=== PATIENT | female | born 1980 | race Caucasian/White ===

== ENCOUNTER 2018-10-03 13:40 | Inpatient (IN) ==
[2018-10-03] MEDS ORDERED: LACTATED RINGER'S 1,000 ML IV PRN ×3 (13:51→16:39)
[2018-10-03] MEDS ORDERED: OXYTOCIN 30 UNITS/500 ML BAG IV PRN ×2 (13:51→14:49)
--- NOTE | 2018-10-03 13:55 | Obstetrical Progress Note ---
Date of Service October 03, 2018 39+2 sent from office for PROM and elevated BP. No sig. H/A or RYQ pain, but anxious. Will induce for PROM and additionally control BP as needed. Will await labs to determine if Magnesium sulfate needed, note initial BP in office was not after sitting for 5 minutes. Physical Exam 2 Vital Signs (Past 24 Hours): Last Vital Signs Pulse 83 10/03/18 13:51 BP 176/86 H 10/03/18 13:44 Pulse Ox 94 10/03/18 13:51
[2018-10-03] MEDS: LACTATED RINGER'S 1,000 ML IV SCH ×2 (14:04→18:52)
[2018-10-03] MEDS ORDERED: NIFEdipine 10 MG CAP PO STA (14:07)
--- NOTE | 2018-10-03 14:12 | Obstetrical Progress Note ---
Date of Service October 03, 2018 recent BP elevated, will give Nifedipine 10mg PO now Physical Exam 2 Vital Signs (Past 24 Hours): Last Vital Signs Pulse 82 10/03/18 14:10 BP 189/117 H 10/03/18 14:05 Pulse Ox 96 10/03/18 14:10
[2018-10-03 14:24] LABS: Hematocrit (blood only) 37.2 % (37-47); Hemoglobin 12.5 g/dL (12.0-16.0); Mean Corpuscular Volume 86.3 fL (80-100); Mean Platelet Volume 12.5 fL (7.4-10.4); Platelet Count 178 K/uL (130-400); RDW Standard Deviation 43.7 fL (36.4-46.3); Red Blood Count 4.31 M/uL (4.2-5.4); White Blood Count 10.26 K/uL (4.8-10.8)
[2018-10-03 14:25] LABS: Mean Corpuscular Hgb Conc 33.6 g/dL (32-36)
--- NOTE | 2018-10-03 14:35 | History & Physical Report ---
Date of Service October 03, 2018 Assessment & Plan (1) 39 weeks gestation of : 37 year old, , at 39.2 weeks gestation with EDC of 10/08/2018 via LMP of 01/01/18. A-, Ab-, GBS- - will augment contractions with Pitocin, epidural upon request, anticipate (2) Elevated blood pressure reading: no symptoms suggesting pre-eclampsia, normal platelets, creatinine, LFTs, does have elevated BP readings here - ordered Nifedipine 10mg PO one time dose and will continue to monitor vitals History of Present Illness Chief Complaint: Labor check and Elevated Blood pressure Primary Care Provider: NO PCP Jsoeph Walterel is 37 year old, , at 39.2 weeks gestation with EDC of 2018 via LMP of 01/01/18 who presents for labor evaluation and elevated blood pressure. She notes leakage of fluid from vagina this morning with 6 contractions in one hour prior to OB appointment. She was seen at OB office prior to admission here and was found to have BP of 220/138. Also noted had positive ferning. She denies headaches, visual changes, RUQ pain. She does not that she felt more short of breath this morning that woke her from sleep and also was mildly nauseated without vomiting. She denies chest pain, fever, chills. Her has been uncomplicated thus far. She notes she feels baby move, no vaginal bleeding. Allergies Allergy/AdvReac Type Severity Reaction Status Date / Time No Known Drug Allergies AdvReac Unknown Verified 10/03/18 14:55 Home Medications Home Medications Medication Instructions Recorded Confirmed Type Vitamin 1 tab/day PO DAILY 10/03/18 10/03/18 History mesalamine 3 tab PO DAILY 10/03/18 10/03/18 History Patient History Medical History Colonoscopy planned Depression Ulcerative colitis [place] teeth removed Surgical History Hx of LASIK Hx of breast reduction, elective OB History , 39.2 weeks gestation with EDC of 10/08/2018 via LMP of 01/01/18 [employer]IN TE[employer]ER History no abnormal paps, no STDs Review of Systems All systems reviewed & are unremarkable except as noted in HPI & below Physical Exam 2 Vital Signs (Past 24 Hours): Last Vital Signs Pulse 77 10/03/18 14:19 BP 175/92 H 10/03/18 14:19 Pulse Ox 96 10/03/18 14:15 Constitutional: WD/WN, vitals as above cooperative Eyes: + anicteric sclerae Respiratory: normal respiratory effort, lungs clear to auscultation Cardiovascular: Rate/Rhythm: regular rate and regular rhythm Heart Sounds: no murmur Gastrointestinal (Abdomen): Percussion/Palpation: abdomen nontender gravid Musculoskeletal: Head/Neck/Chest: normocephalic and head atraumatic Skin: no rashes, warm and dry Neurologic: moves all extremities and awake Psychiatric: Orientation: alert Affect: + anxious affect Genitourinary: OB Exam Monitor Tracing: + external FHT monitor used, + external uterine monitor used and + category I cervical exam performed by Dr. Velasco 1cm/50% effacement Results & Data Laboratory Results Laboratory Results - last 24 hr 10/03/18 10/03/18 14:10 14:10 WBC 10.26 RBC 4.31 Hgb 12.5 Hct 37.2 MCV 86.3 MCH 29.0 MCHC 33.6 RDW Std Deviation 43.7 RDW Coeff of Favian 14.0 Plt Count 178 MPV 12.5 H Sodium 139 Potassium 3.8 Chloride 109 H Carbon Dioxide 23 Anion Gap 7.0 BUN 6 L Creatinine 0.57 L Est Cr Clr Drug Dosing Not Reportable Est GFR ( Amer) 138.2 Est GFR (Non-Af Amer) 119.3 BUN/Creatinine Ratio 10.7 Glucose 68 L Calcium 8.9 Total Bilirubin 0.3 Direct Bilirubin < 0.1 AST 20 ALT 20 Alkaline Phosphatase 145 H Total Protein 6.3 L Albumin 2.7 L Globulin 3.6 Albumin/Globulin Ratio 0.8 L Medications Administered Lactated Ringer's (Lr) 1,000 mls @ 125 mls/hr IV .Q8H ESSIE Stop: 10/05/18 13:59 Last Admin: 10/03/18 14:04 Dose: 125 mls/hr Code Status & VTE Plan Code Status Full Code Monitoring External Monitor Baseline 145 w/moderate variability, accels present, no decels Tocodynamometer mild irregular contractions
[2018-10-03 14:41] LABS: Alanine Aminotransferase 20 U/L (12-78); Albumin Level 2.7 gm/dl (3.4-5.0); Aspartate Aminotransferase 20 U/L (15-37); BUN Creatinine Ratio 10.7 (10-20); Bilirubin Direct < 0.1 mg/dl (0-0.2); Blood Urea Nitrogen 6 mg/dl (7-18); Calcium 8.9 mg/dl (8.5-10.1); Carbon Dioxide 23 mmol/L (21-32); Chloride 109 mmol/L (98-107); Est GFR (African American) 138.2; Est GFR (Non-African American) 119.3; Glucose 68 mg/dl (70-99); Potassium 3.8 mmol/L (3.5-5.1); Sodium 139 mmol/L (136-145)
[2018-10-03 14:44] LABS: Albumin Globulin Ratio 0.8 (0.9-2); Alkaline Phosphatase 145 U/L (45-117); Bilirubin,Total 0.3 mg/dl (0.2-1); Globulin 3.6 gm/dl (2.5-4.0); Total Protein 6.3 gm/dl (6.4-8.2)
--- NOTE | 2018-10-03 14:50 | Obstetrical Progress Note ---
Date of Service October 03, 2018 Labs normal, BP much improved. Will star Oxytocin as only 1cm, 50% PROM. 7-8 lbs Physical Exam 2 Vital Signs (Past 24 Hours): Last Vital Signs Pulse 100 H 10/03/18 14:48 BP 121/77 10/03/18 14:48 Pulse Ox 96 10/03/18 14:15
[2018-10-03] MEDS ORDERED: BUPIVACAINE 0.25% 30 ML VIAL ONE ×2 (15:14→17:41)
[2018-10-03] MEDS ORDERED: fentaNYL citrate 100 MCG/2 ML VIAL ONE ×2 (15:14→23:01)
[2018-10-03] MEDS ORDERED: ePHEDrine sulfate 50 MG/ML AMP ONE (15:14)
[2018-10-03] MEDS ORDERED: fentaNYL 2MCG/ML ROPIV 1.25MG/ML 100 ML BAG EPI ONE (15:16)
--- NOTE | 2018-10-03 16:31 | Anesthesiology Consultation ---
Date of Service October 03, 2018 Assessment & Plan (1) Encounter for pre-operative examination: Chart Review Chart Review: Patient NOT seen in Pre Admission Testing and Acceptable Risk for Labor Epidural ASA ASA2 Proposed Anesthesia Risk / Benefits Reviewed With: PT / POA / Parent / Guardian, Accepts Plan and Informed Consent Obtained NPO Date Last Intake of Fluids: 10/03/18 Time Last Intake of Fluids: 10:31 Date Last Intake of Solids: 10/03/18 Time Last Intake of Solids: 10:31 History Allergies Allergy/AdvReac Type Severity Reaction Status Date / Time No Known Drug Allergies AdvReac Unknown Verified 10/03/18 14:55 Medications Home Medications Medication Instructions Recorded Confirmed Last Taken Vitamin 1 tab/day PO DAILY 10/03/18 10/03/18 10/02/18 08:00 mesalamine 3 tab PO DAILY 10/03/18 10/03/18 10/03/18 0900 Active Medications Generic Name Dose Route Start Last Admin Trade Name Freq PRN Reason Stop Dose Admin Lactated Ringer's 1,000 mls @ 125 mls/hr 10/03/18 14:00 10/03/18 14:04 Lr IV 10/05/18 13:59 125 mls/hr .Q8H ESSIE Administration Oxytocin 30 units in 500 mls @ 1 mls/hr 10/03/18 14:49 10/03/18 15:55 Pitocin IV 10/05/18 14:48 0.06 units/hr .Q24H PRN 1 mls/hr Labor Induction/Augmentation Administration Protocol 0.06 UNITS/HR Past Medical History Medical History Colonoscopy planned Depression Ulcerative colitis [place] teeth removed Past Surgical History Surgical History Hx of LASIK Hx of breast reduction, elective Physical Exam Vital Signs Last Vital Signs Temp 36.7 C 10/03/18 16:20 Pulse 74 10/03/18 16:25 Resp 24 10/03/18 16:20 BP 146/85 H 10/03/18 16:25 Pulse Ox 98 10/03/18 16:25 ENMT Mouth: no dentition abnormality Thyromental Distance: > or= 3.5 Finger Breadths Mallampati Class: II Neck normal visual inspection; neck extension not limited Respiratory normal respiratory effort Auscultation: lungs clear to auscultation bilaterally Cardiovascular Rate/Rhythm: regular rate and regular rhythm Musculoskeletal Spine: normal cervical ROM Psychiatric Orientation: alert and oriented x 3 Testing Laboratory Results 10/03/18 14:10 10/03/18 14:10
[2018-10-03] MEDS ORDERED: PROMETHAZINE HCL 6.25 MG in SODIUM CHLORIDE 0.9% 50 ML IV PRN (16:39)
[2018-10-03] MEDS ORDERED: NALBUPHINE HCL INJ 10 MG/ML AMP IV PRN (16:39)
[2018-10-03] MEDS ORDERED: NALOXONE HCL 1 MG in SODIUM CHLORIDE 0.9% 1000ML 1,000 ML IV PRN (16:39)
[2018-10-03] MEDS ORDERED: NALOXONE HCL 0.4 MG/1 ML VIAL/CARP IV PRN (16:39)
[2018-10-03] MEDS ORDERED: ePHEDrine sulfate 50 MG/ML AMP IV PRN (16:39)
[2018-10-03] MEDS ORDERED: ONDANSETRON INJ 2 MG/ML 2 ML VIAL IV PRN (16:39)
[2018-10-03 17:51] LABS: Amphetamines+Metham, Urine Neg (Neg); Barbiturates, Urine Neg (Neg); Benzodiazepine, Urine Neg (Neg); Cocaine, Urine Neg (Neg); MDMA (Ecstacy), Urine Neg (Neg); Methadone, Urine Neg (Neg); Opiate, Urine Neg (Neg); Phencyclidine, Urine Neg (Neg)
--- NOTE | 2018-10-03 18:12 | Anesthesiology Progress Note ---
Date of Service October 03, 2018 Assessment & Plan (1) Encounter for pre-operative examination: Dosed patient with 15cc of mixed local anesthetic including 5cc of 1% lidocaine, 5cc of 0.25% bupivicane, and 5cc of normal saline. Patient did get significant relief of her pain on both sides and had adequate sensory level bilaterally. Her PCEA basal rate was increased to 12cc/hr. Subjective Called by RN for L sided pain. Her left side apparently never received relief after epidural placement. Unfortunately the patient had a similar issue with her previous delivery and epidural, and it was not improved by replacement of the catheter that time. Physical Exam Vital Signs Last Vital Signs Temp 36.7 C 10/03/18 16:20 Pulse 72 10/03/18 18:05 Resp 24 10/03/18 16:20 BP 149/82 H 10/03/18 18:02 Pulse Ox 94 10/03/18 18:05 Neurologic Motor/Sensory: + sensory deficit (Decreased temp sensation to T4 on right, to approximately L2 on left.) Results & Data Medications Administered Lactated Ringer's (Lr) 1,000 mls @ 125 mls/hr IV .Q8H ESSIE Stop: 10/05/18 13:59 Last Admin: 10/03/18 14:04 Dose: 125 mls/hr Oxytocin (Pitocin) 30 units in 500 mls @ 1 mls/hr IV .Q24H PRN; Protocol PRN Reason: Labor Induction/Augmentation Stop: 10/05/18 14:48 Last Admin: 10/03/18 15:55 Dose: 0.06 units/hr, 1 mls/hr
[2018-10-03] MEDS: ACETAMINOPHEN 325 MG TAB PO PRN (19:02)
--- NOTE | 2018-10-03 19:30 | Obstetrical Progress Note ---
Date of Service October 03, 2018 Progressing to 7cm. Intermittent decels, still uncomfortable, so will have anesthesia called again. Physical Exam 2 Vital Signs (Past 24 Hours): Last Vital Signs Temp 36.7 C 10/03/18 16:20 Pulse 101 H 10/03/18 19:26 Resp 24 10/03/18 16:20 BP 153/74 H 10/03/18 19:19 Pulse Ox 91 10/03/18 19:26
[2018-10-03] MEDS: fentaNYL 2MCG/ML ROPIV 1.25MG/ML 100 ML BAG EPI PRN ×2 (19:45→20:05)
--- NOTE | 2018-10-03 19:49 | Anesthesiology Progress Note ---
Date of Service October 03, 2018 Assessment & Plan (1) Encounter for pre-operative examination: Hand bolused with 15cc of 0.25% bupivicane. Increased PCEA bolus dose from 5cc to 10cc, extended demand interval from 5min to 10min. Total max 1hour dose still 32cc. Subjective Hand bolus improved pain for 2-3 hours. Now having R sided pain again. Physical Exam Vital Signs Last Vital Signs Temp 37.3 C 10/03/18 19:08 Pulse 81 10/03/18 19:44 Resp 24 10/03/18 16:20 BP 138/74 10/03/18 19:44 Pulse Ox 94 10/03/18 19:40 Neurologic Motor/Sensory: + sensory deficit (L sided sensory block T4, R sided T10) Results & Data Medications Administered Acetaminophen (Tylenol) 650 mg PO Q4H PRN PRN Reason: Headache Stop: 11/02/18 18:46 Last Admin: 10/03/18 19:02 Dose: 650 mg Lactated Ringer's (Lr) 1,000 mls @ 125 mls/hr IV .Q8H ESSIE Stop: 10/05/18 13:59 Last Admin: 10/03/18 18:52 Dose: 125 mls/hr Infusion: 10/03/18 18:52 Dose: 125 mls/hr Admin: 10/03/18 14:04 Dose: 125 mls/hr Oxytocin (Pitocin) 30 units in 500 mls @ 1 mls/hr IV .Q24H PRN; Protocol PRN Reason: Labor Induction/Augmentation Stop: 10/05/18 14:48 Last Admin: 10/03/18 15:55 Dose: 0.06 units/hr, 1 mls/hr
--- NOTE | 2018-10-03 20:46 | Obstetrical Progress Note ---
Date of Service October 03, 2018 Patient is having some recurrent variable shape B cell some of them times late after the contraction baseline variability is good patient is now 8+ centimeters -1 station Pitocin stop oxygen started will consider restarting Pitocin however she is luis eduardo discussed appropriate times for intervention including and possible vacuum Physical Exam 2 Vital Signs (Past 24 Hours): Last Vital Signs Temp 37.3 C 10/03/18 19:08 Pulse 82 10/03/18 20:40 Resp 24 10/03/18 16:20 BP 151/95 H 10/03/18 20:38 Pulse Ox 98 10/03/18 20:40
--- NOTE | 2018-10-03 21:01 | Obstetrical Progress Note ---
Date of Service October 03, 2018 Tracing is improved with stopping Pitocin and there still are variable shaped decelerations that are occurring occasionally in a late pattern variability and accelerations are reassuring Physical Exam 2 Vital Signs (Past 24 Hours): Last Vital Signs Temp 37.3 C 10/03/18 19:08 Pulse 87 10/03/18 20:55 Resp 24 10/03/18 16:20 BP 153/89 H 10/03/18 20:53 Pulse Ox 97 10/03/18 20:55
--- NOTE | 2018-10-03 22:25 | Obstetrical Progress Note ---
Date of Service October 03, 2018 She has progressed to anterior lip, 0 station. Intermittent deeper decels sometimes late in timing, sometimes not. We attempted to push x2 contractions and push the lip away, however there was no decent of the head. On examination with the 2 pushes, there was significant movement palpated.. Bleeding also has been noted with the labor process and a recent gush of bloody fluid. A+P: Watching very carefully and hoping for some progress in decent, otherwise may have to consider C/S. With her being a multip I am still hopeful. JFD Physical Exam 2 Vital Signs (Past 24 Hours): Last Vital Signs Temp 37.1 C 10/03/18 20:53 Pulse 84 10/03/18 22:15 Resp 24 10/03/18 16:20 BP 142/69 H 10/03/18 21:23 Pulse Ox 99 10/03/18 22:15
--- NOTE | 2018-10-03 22:35 | Obstetrical Progress Note ---
Date of Service October 03, 2018 Still no progress I have offered C/S as no cervical progress (9cm) in last hour , I don't feel like I can start Pitocin with the tracing and FHR tracing is worsening. Disc risks Physical Exam 2 Vital Signs (Past 24 Hours): Last Vital Signs Temp 37.1 C 10/03/18 20:53 Pulse 92 H 10/03/18 22:32 Resp 24 10/03/18 16:20 BP 142/69 H 10/03/18 21:23 Pulse Ox 90 10/03/18 22:32
[2018-10-03] MEDS ORDERED: CEFAZOLIN 2,000 MG in SYRINGE 0 ML IV ONE (22:45)
[2018-10-03] MEDS ORDERED: CITRIC ACID/SODIUM CITRATE 15 ML UDC ONE (22:45)
[2018-10-03] MEDS ORDERED: MoRPHine SULFATE PF 1 MG/ML 10 ML AMP/VIAL ONE (23:01)
[2018-10-03] MEDS ORDERED: KETOROLAC 30 MG/ML VIAL ONE (23:38)
[2018-10-03] MEDS ORDERED: ONDANSETRON INJ 2 MG/ML 2 ML VIAL ONE (23:38)
[2018-10-03] MEDS ORDERED: PHENYLEPHRINE 100MCG/ML 5ML SYR ONE (23:38)
[2018-10-03] MEDS ORDERED: OXYTOCIN 10 UNITS/ML VIAL ONE (23:38)
[2018-10-04] MEDS ORDERED: SUPERCREAM 0.870% 15 GM JAR EXT PRN (00:27)
[2018-10-04] MEDS ORDERED: MAGNESIUM HYDROXIDE SUSP 30 ML UDC PO PRN (00:27)
[2018-10-04] MEDS ORDERED: BENZOCAINE 20% AER SPR 82.5 GM CAN EXT PRN (00:27)
[2018-10-04] MEDS ORDERED: DIPHTHERIA/TETANUS/PERTUSSIS 0.5 ML SYR/VIAL IM ONE (00:27)
[2018-10-04] MEDS ORDERED: PROMETHAZINE HCL 25 MG in SODIUM CHLORIDE 0.9% 50 ML IV PRN (00:27)
[2018-10-04] MEDS ORDERED: HYDROCORTISONE ACETATE 25 MG SUPP PR PRN (00:27)
[2018-10-04] MEDS ORDERED: IBUPROFEN 600 MG TAB PO PRN (00:27)
--- NOTE | 2018-10-04 00:27 | Post Operative Brief Note ---
Immediate Post Op Note v1 Date of Surgery October 04, 2018 Pre & Post Diagnosis Operation Date: 10/03/18 22:30 Pre-Op Diagnosis: intolerance to labor Post-Op Diagnosis: Same as post op Delivery of live male child Lower uterine transverse incision Procedure Operation Date: 10/03/18 22:30 Actual Procedures p Section in LD - Joshua Velasco MD, FACOG Surgeon Joshua Velasco MD, FACOG Janitor Custodian none Estimated Blood Loss 1,000 Findings Consistent with Post-Op Diagnosis Drains Cruz Catheter
[2018-10-04] MEDS ORDERED: LACTATED RINGER'S 1,000 ML IV SCH (00:30)
--- NOTE | 2018-10-04 00:41 | History and Physical Report ---
DATE OF ADMISSION: 10/03/2018 HISTORY OF PRESENT ILLNESS: The patient presented after being seen in the office initially at 38-39 weeks with increased blood pressures. These resolved fairly soon afterwards with 1 dose of nifedipine. She had ruptured membranes and some bloody show and was 1 cm. She was assessed for PIH labs and these were negative. Her blood pressures decreased dramatically. Pitocin was started, an epidural was obtained as well. The patient progressed to 9 cm; however, stopped progressing and her heart rate tracing worsened specifically with some prolonged decels and many of them timed late. Various efforts at positioning oxygen including stopping the Pitocin were made, however, there was no change in the cervix. I offered to continue for the patient. I offered the option of section. The patient agreed to section. Discussed risks including the increased risks of infection in labor, but also risks of bleeding, injury to bowel, bladder, ureter, baby, deep vein thrombosis, and pulmonary embolus.
--- NOTE | 2018-10-04 00:49 | Anesthesia Procedure Note ---
Date of Service October 04, 2018 Anesthesia Post Epidural Note Vital Signs Vital Signs: Temp Pulse Resp BP Pulse Ox 10/04/18 00:47 85 94 10/04/18 00:45 92 H 115/73 10/04/18 00:44 89 92 10/04/18 00:42 84 93 10/04/18 00:41 85 115/67 10/04/18 00:37 91 H 93 10/04/18 00:32 88 97 10/04/18 00:31 92 H 94 10/04/18 00:27 87 95 10/04/18 00:26 92 H 90 10/04/18 00:25 84 139/93 10/03/18 23:02 97 H 92 10/03/18 23:00 97 H 96 10/03/18 22:55 88 95 10/03/18 22:54 86 87 L 10/03/18 22:53 83 161/89 H 10/03/18 22:50 99 H 98 10/03/18 22:45 87 99 10/03/18 22:40 85 96 10/03/18 22:38 92 H 136/78 10/03/18 22:35 93 H 99 10/03/18 22:32 92 H 90 10/03/18 22:30 90 96 10/03/18 22:25 87 98 10/03/18 22:23 76 87 L 10/03/18 22:20 95 H 100 10/03/18 22:15 84 99 10/03/18 22:10 95 H 94 10/03/18 22:05 92 H 98 10/03/18 22:00 78 95 10/03/18 21:55 77 97 10/03/18 21:53 89 92 10/03/18 21:50 80 98 10/03/18 21:45 82 96 10/03/18 21:40 86 97 10/03/18 21:35 82 97 10/03/18 21:30 81 98 10/03/18 21:25 79 97 10/03/18 21:23 83 142/69 H 10/03/18 21:20 77 98 10/03/18 21:15 75 98 10/03/18 21:10 80 99 10/03/18 21:08 75 141/71 H 10/03/18 21:05 74 100 10/03/18 21:00 76 98 10/03/18 20:55 87 97 10/03/18 20:53 37.1 C 88 153/89 H 10/03/18 20:50 83 99 10/03/18 20:45 87 98 10/03/18 20:40 82 98 10/03/18 20:38 89 151/95 H 10/03/18 20:35 87 99 10/03/18 20:30 74 98 10/03/18 20:25 93 H 99 10/03/18 20:24 90 147/93 H 10/03/18 20:20 87 97 10/03/18 20:15 115 H 94 10/03/18 20:13 95 H 92 10/03/18 20:10 79 95 10/03/18 20:08 80 141/74 H 10/03/18 20:05 80 95 10/03/18 20:00 79 94 10/03/18 19:55 84 96 10/03/18 19:54 76 139/72 10/03/18 19:51 86 90 10/03/18 19:50 85 99 10/03/18 19:46 89 139/75 10/03/18 19:45 82 96 10/03/18 19:44 81 138/74 10/03/18 19:42 92 H 174/82 H 10/03/18 19:40 84 94 10/03/18 19:38 89 156/82 H 10/03/18 19:35 98 H 97 10/03/18 19:30 80 94 10/03/18 19:28 80 163/74 H 10/03/18 19:26 101 H 91 10/03/18 19:25 95 H 93 10/03/18 19:20 89 95 10/03/18 19:19 88 153/74 H 91 10/03/18 19:15 87 97 10/03/18 19:10 88 95 10/03/18 19:08 37.3 C 82 146/72 H 10/03/18 19:05 84 95 10/03/18 19:00 83 94 10/03/18 18:58 76 140/70 10/03/18 18:55 80 97 10/03/18 18:50 91 H 97 10/03/18 18:48 79 145/82 H 10/03/18 18:45 87 94 10/03/18 18:42 78 90 10/03/18 18:40 78 96 10/03/18 18:38 78 137/74 10/03/18 18:36 88 89 L 10/03/18 18:35 82 96 10/03/18 18:31 76 91 10/03/18 18:30 79 96 10/03/18 18:29 80 149/72 H 10/03/18 18:25 82 96 10/03/18 18:20 78 96 10/03/18 18:18 72 140/74 10/03/18 18:15 76 97 10/03/18 18:10 81 95 10/03/18 18:09 80 89 L 10/03/18 18:08 85 140/77 10/03/18 18:05 72 94 10/03/18 18:02 82 149/82 H 10/03/18 18:00 84 95 10/03/18 17:59 81 149/83 H 10/03/18 17:55 77 96 10/03/18 17:52 76 144/77 H 10/03/18 17:50 82 96 10/03/18 17:47 78 154/72 H 10/03/18 17:45 79 97 10/03/18 17:42 86 169/77 H 10/03/18 17:40 83 95 10/03/18 17:39 86 134/88 89 L 10/03/18 17:35 91 H 94 10/03/18 17:32 85 158/94 H 10/03/18 17:30 88 96 10/03/18 17:27 78 147/89 H 10/03/18 17:25 90 100 10/03/18 17:24 86 90 10/03/18 17:22 75 154/74 H 10/03/18 17:20 82 98 10/03/18 17:17 85 157/81 H 10/03/18 17:15 100 H 97 10/03/18 17:13 93 H 172/81 H 10/03/18 17:10 99 H 97 10/03/18 17:08 92 H 164/90 H 10/03/18 17:05 99 H 98 10/03/18 17:02 89 162/89 H 10/03/18 17:00 92 H 97 10/03/18 16:57 89 91 10/03/18 16:55 100 H 100 01/07/19 16:53 92 H 190/74 H 10/03/18 16:50 98 H 90 10/03/18 16:48 99 H 142/91 H 10/03/18 16:45 93 H 97 10/03/18 16:42 90 158/103 H 10/03/18 16:40 82 97 10/03/18 16:38 90 151/90 H 10/03/18 16:35 91 H 98 10/03/18 16:32 72 156/83 H 10/03/18 16:30 82 96 10/03/18 16:25 74 146/85 H 98 10/03/18 16:23 80 144/76 H 10/03/18 16:21 78 153/82 H 10/03/18 16:20 36.7 C 82 24 98 10/03/18 16:19 86 180/75 H 10/03/18 16:17 96 H 180/102 H 10/03/18 16:15 88 98 10/03/18 15:49 85 159/84 H 10/03/18 15:39 82 155/87 H 10/03/18 15:20 96 H 146/76 H 10/03/18 15:09 89 146/77 H 10/03/18 14:59 90 134/68 10/03/18 14:48 100 H 121/77 10/03/18 14:29 73 156/80 H 10/03/18 14:19 77 175/92 H 10/03/18 14:15 85 96 10/03/18 14:12 81 161/96 H 10/03/18 14:10 82 96 10/03/18 14:05 74 189/117 H 96 10/03/18 14:03 85 93 10/03/18 14:00 36.7 C 88 24 96 10/03/18 13:57 90 91 10/03/18 13:55 81 96 10/03/18 13:53 71 176/96 H 10/03/18 13:51 83 94 10/03/18 13:50 82 95 10/03/18 13:45 77 96 10/03/18 13:44 81 176/86 H Pain Intensity Left Abdomen: Pain Intensity: 1 Notes Mental Status: alert / awake / arousable Nausea / Vomiting: adequately controlled Pain: adequately controlled Airway Patency, RR, SpO2: stable & adequate BP & HR: stable & adequate Hydration State: stable & adequate Neuraxial Anesthesia: was administered and sensory block is resolving Anesthetic Complications: no major complications apparent Epidural: Removed without complications
[2018-10-04] MEDS ORDERED: NALBUPHINE HCL INJ 10 MG/ML AMP IV PRN (00:50)
[2018-10-04] MEDS ORDERED: MoRPHine SULFATE 2 MG/ML CARP IV PRN (00:50)
[2018-10-04] MEDS ORDERED: LACTATED RINGER'S 500 ML IV PRN (00:50)
[2018-10-04] MEDS ORDERED: NALOXONE HCL 0.4 MG/1 ML VIAL/CARP IV PRN (00:50)
[2018-10-04] MEDS ORDERED: PROMETHAZINE HCL 6.25 MG in SODIUM CHLORIDE 0.9% 50 ML IV PRN (00:50)
[2018-10-04] MEDS ORDERED: NALOXONE HCL 0.08 MG in SYRINGE 1.8 ML IV PRN (00:50)
[2018-10-04] MEDS ORDERED: ePHEDrine sulfate 50 MG/ML AMP IV PRN (00:50)
[2018-10-04] MEDS ORDERED: ONDANSETRON INJ 2 MG/ML 2 ML VIAL IV PRN ×2 (00:50→18:51)
[2018-10-04] MEDS ORDERED: MEPERIDINE HCL 25 MG/ML CARP IV PRN (00:50)
[2018-10-04] MEDS ORDERED: DiphenhydrAMINE HCL 50 MG/ML VIAL IV PRN ×2 (00:50→18:51)
[2018-10-04] MEDS ORDERED: HYDROmorphone INJ 0.5 MG/0.5 ML SYR IV PRN (00:50)
[2018-10-04] MEDS ORDERED: MoRPHine SULFATE PF 1 MG/ML 10 ML AMP/VIAL INT SPINAL ONE (00:50)
[2018-10-04] MEDS ORDERED: NALOXONE HCL 1 MG in SODIUM CHLORIDE 0.9% 1000ML 1,000 ML IV PRN (00:50)
[2018-10-04 00:56] LABS: Base Excess Cord Arterial Bld -4.5 mEq/L (-9-1.8); CO2 Cord Arterial Blood 61 mmHg (39.1-73.5); HCO3 Cord Arterial Blood 25 mmol/L (19.7-28.5); pH Cord Arterial Blood 7.23 (7.1-7.38)
[2018-10-04 01:00] LABS: PO2 Cord Arterial Blood < 10.0 % (4.1-31.7)
[2018-10-04] MEDS ORDERED: SODIUM CHLORIDE 0.9% 1000ML 1,000 ML IV SCH (01:00)
[2018-10-04] MEDS ORDERED: NO NARCOTICS OR SEDATIVES SCH (01:00)
[2018-10-04] MEDS ORDERED: DC INTRASPINAL MORPHINE SCH (01:00)
[2018-10-04] MEDS: OXYTOCIN 20 UNITS in LACTATED RINGER'S 1,000 ML IV SCH ×3 (01:06→07:23)
[2018-10-04 01:07] LABS: Cord Venous Blood HCO3 22 mmol/L (18.4-26.8); Cord Venous Blood PCO2 48 mmHg (30.4-57.2); Cord Venous Blood PO2 22 mmHg (14.1-43.3); Cord Venous Blood pH 7.28 (7.20-7.44)
[2018-10-04 01:08] LABS: O2 Saturation Cord Venous Bld < 60.0 % (<68)
[2018-10-04] MEDS ORDERED: Nursing to Pharmacy Communication ONE (03:58)
[2018-10-04] MEDS ORDERED: LACTATED RINGER'S 500 ML IV ONE ×2 (04:14→09:49)
--- NOTE | 2018-10-04 04:17 | Obstetrical Progress Note ---
Date of Service October 04, 2018 1000cc loss at C/S and 700cc loss post delivery. Patient feels well, VSS. Uterus is firm, massage only results in minimal bleeding at this time CBC. Bolus. Physical Exam 2 Vital Signs (Past 24 Hours): Last Vital Signs Temp 36.9 C 10/04/18 02:25 Pulse 101 H 10/04/18 04:12 Resp 18 10/04/18 03:32 BP 100/59 L 10/04/18 03:32 Pulse Ox 96 10/04/18 04:12
[2018-10-04 04:49] LABS: Partial Thromboplastin Time 25.7 Seconds (21.0-31.0); Prothrombin Time 10.1 Seconds (9.0-12.0)
[2018-10-04 05:00] LABS: Hematocrit (blood only) 27.5 % (37-47); Hemoglobin 9.2 g/dL (12.0-16.0); Mean Corpuscular Hgb Conc 33.5 g/dL (32-36); Mean Corpuscular Volume 85.9 fL (80-100); Mean Platelet Volume 12.1 fL (7.4-10.4); Platelet Count 182 K/uL (130-400); RDW Standard Deviation 44.1 fL (36.4-46.3); White Blood Count 21.14 K/uL (4.8-10.8)
[2018-10-04 05:01] LABS: Basophils # (auto) 0.01 K/uL (0-0.2); Immature Granulocytes # (auto) 0.06 K/uL (0.00-0.02); Immature Granulocytes % (auto) 0.3 %; Lymphocytes % (auto) 5.2 %; Monocytes # (auto) 1.19 K/uL (0.11-0.59); Monocytes % (auto) 5.6 %; Neutrophils # (auto) 18.78 K/uL (1.4-6.5); Neutrophils % (auto) 88.9 %; RBC Morphology Unremarkable
--- NOTE | 2018-10-04 07:01 | Obstetrical Progress Note ---
Date of Service <Sanjeev Damon DO - Last Filed: 10/04/18 07:01> October 04, 2018 Assessment & Plan <Sanjeev Damon DO - Last Filed: 10/04/18 07:01> (1) delivery delivered: For intolerance to labor - continue routine post- care - POD #1 (2) 39 weeks gestation of : 37 year old, , at 39.2 weeks gestation with EDC of 10/08/2018 via LMP of 01/01/18. A-, Ab-, GBS- - required Csection for intolerance to labor (3) Elevated blood pressure reading: yesterday received Nifedipine 10mg PO one time dose for elevated BP shortly after arriving to the L&D floor - vitals have been stable since Day #:: 1 Subjective <Sanjeev Damon DO - Last Filed: 10/04/18 07:01> Voiding: serna catheter in place Passing Gas:: Yes Diet Tolerance:: regular diet Lochia:: Small Feeding Type:: breast feeding Current Pain Level(1-10): 0 Joseph is doing well this morning, no fever, chills, chest pain, shortness of breath. States she has mild abdominal tightness only with deep breaths. Physical Exam <Sanjeev Damon DO - Last Filed: 10/04/18 07:01> Vital Signs (Past 24 Hours) Last Vital Signs Temp 37.1 C 10/04/18 04:36 Pulse 85 10/04/18 06:52 Resp 18 10/04/18 04:36 BP 110/64 10/04/18 05:32 Pulse Ox 92 10/04/18 06:52 Constitutional WD/WN, vitals as above cooperative Eyes + anicteric sclerae Respiratory normal respiratory effort, lungs clear to auscultation Cardiovascular RRR, no murmur, no edema Heart Sounds: no murmur Gastrointestinal (Abdomen) Percussion/Palpation: abdomen nontender surgical incision is clean, dry, intact Musculoskeletal Head/Neck/Chest: normocephalic and head atraumatic Skin no rashes, warm and dry Neurologic moves all extremities and awake Psychiatric Orientation: alert Results & Data <Sanjeev Damon DO - Last Filed: 10/04/18 07:01> Laboratory Results Laboratory Results - last 24 hr 10/03/18 10/03/18 10/03/18 14:10 14:10 14:10 WBC 10.26 RBC 4.31 Hgb 12.5 Hct 37.2 MCV 86.3 MCH 29.0 MCHC 33.6 RDW Std Deviation 43.7 RDW Coeff of Favian 14.0 Plt Count 178 MPV 12.5 H Immature Gran % (Auto) Neut % (Auto) Lymph % (Auto) [place] % (Auto) Eos % (Auto) Baso % (Auto) Immature Gran # (Auto) Neut # (Auto) Lymph # (Auto) [place] # (Auto) Eos # (Auto) Baso # (Auto) RBC Morphology PT INR APTT PTT Ratio Cord ABG pH Cord ABG pCO2 Cord ABG pO2 Cord ABG HCO3 Cord ABG Base Excess Cord ABG O2 Sat Cord VBG pH Cord VBG pCO2 Cord VBG pO2 Cord VBG HCO3 Cord VBG Base Excess Cord VBG O2 Sat Barometric Pressure Blood Gas Comments Sodium 139 Potassium 3.8 Chloride 109 H Carbon Dioxide 23 Anion Gap 7.0 BUN 6 L Creatinine 0.57 L Est Cr Clr Drug Dosing Not Reportable Est GFR ( Amer) 138.2 Est GFR (Non-Af Amer) 119.3 BUN/Creatinine Ratio 10.7 Glucose 68 L Calcium 8.9 Total Bilirubin 0.3 Direct Bilirubin < 0.1 AST 20 ALT 20 Alkaline Phosphatase 145 H Total Protein 6.3 L Albumin 2.7 L Globulin 3.6 Albumin/Globulin Ratio 0.8 L Urine Creatinine 2 Urine Opiates Screen Ur Opiates Confirm Ur Oxycodone Screen Ur Methadone, Qual Ur Methadone Urine Barbiturates Ur Barbiturate Confirm Ur Phencyclidine Scrn Ur Phencyclidine (PCP) Urine PCP Confirm Ur Amphetamines Screen U Amphetamines Confirm U Amphetamin/Meth Scrn MDMA (Ecstasy) Screen U Benzodiazepines Scrn U Benzodiazepine Confm Urine Cocaine Ur Cocaine Metabolite U Cocaine Metab Confirm U Marijuana (THC) Screen U Marijuana (THC) Confirm U THC/Creatinine Ratio Ur Drug Screen Comment Blood Type A Negative Antibody Screen POSITIVE A Antibody Identification Anti-D due to RhIg 10/03/18 10/03/18 10/03/18 14:35 14:35 23:30 WBC RBC Hgb Hct MCV MCH MCHC RDW Std Deviation RDW Coeff of Favian Plt Count MPV Immature Gran % (Auto) Neut % (Auto) Lymph % (Auto) [place] % (Auto) Eos % (Auto) Baso % (Auto) Immature Gran # (Auto) Neut # (Auto) Lymph # (Auto) [place] # (Auto) Eos # (Auto) Baso # (Auto) RBC Morphology PT INR APTT PTT Ratio Cord ABG pH 7.23 Cord ABG pCO2 61 Cord ABG pO2 < 10.0 Cord ABG HCO3 25 Cord ABG Base Excess -4.5 Cord ABG O2 Sat < 60.0 Cord VBG pH Cord VBG pCO2 Cord VBG pO2 Cord VBG HCO3 Cord VBG Base Excess Cord VBG O2 Sat Barometric Pressure 732.8 Blood Gas Comments DEJESUS Sodium Potassium Chloride Carbon Dioxide Anion Gap BUN Creatinine Est Cr Clr Drug Dosing Est GFR ( Amer) Est GFR (Non-Af Amer) BUN/Creatinine Ratio Glucose Calcium Total Bilirubin Direct Bilirubin AST ALT Alkaline Phosphatase Total Protein Albumin Globulin Albumin/Globulin Ratio Urine Creatinine 2 Cancelled Urine Opiates Screen Cancelled Neg Ur Opiates Confirm Cancelled Ur Oxycodone Screen Cancelled Ur Methadone, Qual Cancelled Neg Ur Methadone Cancelled Urine Barbiturates Cancelled Neg Ur Barbiturate Confirm Cancelled Ur Phencyclidine Scrn Cancelled Ur Phencyclidine (PCP) Neg Urine PCP Confirm Cancelled Ur Amphetamines Screen Cancelled U Amphetamines Confirm Cancelled U Amphetamin/Meth Scrn Neg MDMA (Ecstasy) Screen Neg U Benzodiazepines Scrn Cancelled Neg U Benzodiazepine Confm Cancelled Urine Cocaine Cancelled Ur Cocaine Metabolite Neg U Cocaine Metab Confirm Cancelled U Marijuana (THC) Screen Cancelled Neg U Marijuana (THC) Confirm Cancelled U THC/Creatinine Ratio Cancelled Ur Drug Screen Comment Cancelled Blood Type Antibody Screen Antibody Identification 10/03/18 10/04/18 10/04/18 23:30 04:28 04:28 WBC 21.14 H D RBC 3.20 L Hgb 9.2 L D Hct 27.5 L MCV 85.9 MCH 28.8 MCHC 33.5 RDW Std Deviation 44.1 RDW Coeff of Favian 14.0 Plt Count 182 MPV 12.1 H Immature Gran % (Auto) 0.3 Neut % (Auto) 88.9 Lymph % (Auto) 5.2 [place] % (Auto) 5.6 Eos % (Auto) 0.0 Baso % (Auto) 0.0 Immature Gran # (Auto) 0.06 H Neut # (Auto) 18.78 H Lymph # (Auto) 1.10 L [place] # (Auto) 1.19 H Eos # (Auto) 0.00 Baso # (Auto) 0.01 RBC Morphology Unremarkable PT 10.1 INR 1.0 APTT 25.7 PTT Ratio 1.0 Cord ABG pH Cord ABG pCO2 Cord ABG pO2 Cord ABG HCO3 Cord ABG Base Excess Cord ABG O2 Sat Cord VBG pH 7.28 Cord VBG pCO2 48 Cord VBG pO2 22 Cord VBG HCO3 22 Cord VBG Base Excess -5.0 Cord VBG O2 Sat < 60.0 Barometric Pressure 733.3 Blood Gas Comments DEJESUS Sodium Potassium Chloride Carbon Dioxide Anion Gap BUN Creatinine Est Cr Clr Drug Dosing Est GFR ( Amer) Est GFR (Non-Af Amer) BUN/Creatinine Ratio Glucose Calcium Total Bilirubin Direct Bilirubin AST ALT Alkaline Phosphatase Total Protein Albumin Globulin Albumin/Globulin Ratio Urine Creatinine 2 Urine Opiates Screen Ur Opiates Confirm Ur Oxycodone Screen Ur Methadone, Qual Ur Methadone Urine Barbiturates Ur Barbiturate Confirm Ur Phencyclidine Scrn Ur Phencyclidine (PCP) Urine PCP Confirm Ur Amphetamines Screen U Amphetamines Confirm U Amphetamin/Meth Scrn MDMA (Ecstasy) Screen U Benzodiazepines Scrn U Benzodiazepine Confm Urine Cocaine Ur Cocaine Metabolite U Cocaine Metab Confirm U Marijuana (THC) Screen U Marijuana (THC) Confirm U THC/Creatinine Ratio Ur Drug Screen Comment Blood Type Antibody Screen Antibody Identification Medications Administered Acetaminophen (Tylenol) 650 mg PO Q4H PRN PRN Reason: Headache Stop: 11/02/18 18:46 Last Admin: 10/03/18 19:02 Dose: 650 mg Lactated Ringer's (Lr) 1,000 mls @ 125 mls/hr IV .Q8H ESSIE Stop: 10/05/18 13:59 Last Infusion: 10/03/18 20:59 Dose: 125 mls/hr Infusion: 10/03/18 20:29 Dose: 999 mls/hr Admin: 10/03/18 18:52 Dose: 125 mls/hr Infusion: 10/03/18 18:52 Dose: 125 mls/hr Admin: 10/03/18 14:04 Dose: 125 mls/hr Oxytocin (Pitocin) 30 units in 500 mls @ 0 mls/hr IV .Q24H PRN; Protocol PRN Reason: Labor Induction/Augmentation Stop: 10/05/18 14:48 Last Titration: 10/03/18 20:29 Dose: 0 units/hr, 0 mls/hr Admin: 10/03/18 15:55 Dose: 0.06 units/hr, 1 mls/hr Oxytocin 20 units/ Lactated (Ringer's) 1,002 mls @ 200 mls/hr IV .Q5H1M ESSIE Stop: 10/04/18 12:07 Last Infusion: 10/04/18 06:34 Dose: 200 mls/hr Admin: 10/04/18 04:27 Dose: 200 mls/hr Infusion: 10/04/18 04:27 Dose: 125 mls/hr Admin: 10/04/18 01:06 Dose: 125 mls/hr Meperidine HCl (Demerol) 25 mg IV Q15M PRN PRN Reason: Breakthrough Surgical Pain Stop: 10/04/18 18:50 Last Admin: 10/04/18 02:33 Dose: 25 mg <Joshua Velasco MD, FACOG - Last Filed: 10/04/18 07:56> Co-Signing Physician Notes Resident Physician Supervision Note: I interviewed and examined the patient. Discussed with Dr. Damon and agree with findings and plan as documented in the note. Any exceptions or clarifications are listed here: Patient had a hemoglobin of 9.2 at 4 in the morning her bleeding is scant now we will recheck her labs at noon I have given her a fluid bolus now as her urine output is somewhat low uterus is firm and well contracted Documented By: Joshua Velasco MD, FACOG
[2018-10-04] MEDS: DiphenhydrAMINE HCL 50 MG/ML VIAL IV PRN ×2 (07:29→14:27)
[2018-10-04] MEDS ORDERED: LACTATED RINGER'S 250 ML IV ONE ×2 (07:31→08:00)
--- NOTE | 2018-10-04 07:44 | Operative Report ---
DATE OF OPERATION: 10/04/2018 PREOPERATIVE DIAGNOSIS: intolerance to labor. POSTOPERATIVE DIAGNOSIS: Same. PROCEDURE: Low segment transverse section. SURGEON: Joshua Velasco MD COW TESTER: None. ANESTHETIC: Spinal. DRAINS: Cruz catheter. COMPLICATIONS: None. ESTIMATED BLOOD LOSS: 1000 mL. SPECIMENS: Cord gases, cord blood. DRAINS: Cruz catheter. DISPOSITION: Labor and delivery. DESCRIPTION OF PROCEDURE: The patient was given a spinal anesthetic and had a Cruz catheter inserted by nursing. There was some pink blood tinged color to the urine prior to the procedure. The patient was given preoperative antibiotics, prepped and draped in supine position with a leftward tilt. Skin was tested with pickups with teeth and found to be adequate. Scalpel used to make a Pfannenstiel incision dissecting down through subcutaneous fat through the fascia in the midline. Fascia cut laterally with the curved Jimenez scissors. Fascia then released from the rectus muscles superiorly and inferiorly. Rectus muscle split. Peritoneal cavity entered in a superior location and then peritoneal cavity opening enlarged to allow exposure. Bladder retractor placed. Metzenbaums used to dissect away the bladder flap and scalpel used to make a low transverse incision on the uterus. Entry was done bluntly with the preservative filler machine operator's finger and then opening enlarged with the preservative filler machine operator's finger into the uterine hysterotomy incision. Baby was in vertex position. There was thick meconium noted at this time. This had not been noted during labor itself. We elevated the head out of the pelvis and then flexed it and then pressure from the library assistant allowed delivery of the head. Mouth and nares suctioned with bulb and then baby delivered. No nuchal cord. Baby vigorous. Cord clamped and cut. Cord gases obtained. Cord blood obtained. Placenta removed. Uterus exteriorized. We ensured all placenta was removed. Uterine tone improved. Uterus was closed carefully with 0 Monocryl as the uterine wall was fairly thin to repair. We adequately did this though by clamping each corner with a Emma ensuring hemostasis. After 2-layer closure and generous irrigation and suction of the cul-de-sac, the uterus was placed back in the peritoneal cavity. Hemostasis was excellent at this stage. We carefully checked the pericolic gutters and hemostasis was excellent. Uterine tone excellent. Fascia closed with 0 Vicryl, subcutaneous fat irrigated and closed with 3-0 Vicryl, 4-0 subcuticular Monocryl closure and Steri-Strips. Bleeding at the end of the case was minimal and there still was a bloody tinge color to the urine, but not significantly changed since the start of the procedure. I attest to the content of the Intraoperative Record and any orders documented therein. Any exception s are noted below.
[2018-10-04] MEDS: KETOROLAC 30 MG/ML VIAL IV PRN ×2 (08:05→14:23)
[2018-10-04] MEDS: SIMETHICONE 80 MG CHEW PO SCH ×4 (08:20→21:06)
[2018-10-04] MEDS: PRENATAL VITAMIN 1 TAB PO SCH (08:20)
[2018-10-04] MEDS: FERROUS SULFATE 325 MG TAB PO SCH (08:20)
[2018-10-04] MEDS: DOCUSATE SODIUM 100 MG CAP PO SCH ×2 (08:20→21:06)
--- NOTE | 2018-10-04 09:49 | Communication Note ---
Date of Service: October 04, 2018 Patient seen and sitting up in bed. Notes comfortable. nl O2 sats. Lungs are clear. uop are boderline. Will give another 500cc bolus. Urine is super concentrated. Blood pressures normal. reflexes +1/2. Notes some tenderness in the upper abdomen on palpation. Labs due at noon. Bleeding is good.
[2018-10-04 12:10] LABS: Basophils # (auto) 0.01 K/uL (0-0.2); Basophils % (auto) 0.1 %; Eosinophils # (auto) 0.02 K/uL (0-0.5); Eosinophils % (auto) 0.1 %; Hematocrit (blood only) 21.3 % (37-47); Hemoglobin 7.1 g/dL (12.0-16.0); Immature Granulocytes # (auto) 0.05 K/uL (0.00-0.02); Immature Granulocytes % (auto) 0.3 %; Lymphocytes # (auto) 2.04 K/uL (1.2-3.4); Lymphocytes % (auto) 13.4 %; Mean Corpuscular Hgb Conc 33.3 g/dL (32-36); Mean Corpuscular Volume 85.9 fL (80-100); Mean Platelet Volume 11.3 fL (7.4-10.4); Monocytes # (auto) 1.06 K/uL (0.11-0.59); Neutrophils # (auto) 12.04 K/uL (1.4-6.5); Neutrophils % (auto) 79.1 %; Platelet Count 148 K/uL (130-400); RDW Coefficient of Variation 14.1 % (11.5-14.5); RDW Standard Deviation 43.8 fL (36.4-46.3); Red Blood Count 2.48 M/uL (4.2-5.4); White Blood Count 15.22 K/uL (4.8-10.8)
[2018-10-04 12:33] LABS: Albumin Globulin Ratio 0.7 (0.9-2); Albumin Level 1.8 gm/dl (3.4-5.0); BUN Creatinine Ratio 14.3 (10-20); Bilirubin,Total 0.6 mg/dl (0.2-1); Calcium 7.2 mg/dl (8.5-10.1); Creatinine Clr Calc Pharmacy 119.8 ml/min; Est GFR (African American) 118.9; Est GFR (Non-African American) 102.5; Globulin 2.4 gm/dl (2.5-4.0); Potassium 4.1 mmol/L (3.5-5.1); Total Protein 4.2 gm/dl (6.4-8.2)
[2018-10-04 12:44] LABS: Basophilic Stippling 1+; Polychromasia 1+
[2018-10-04] MEDS: LACTATED RINGER'S 1,000 ML IV SCH (15:50)
[2018-10-04] MEDS ORDERED: [UNRECOGNIZED DRUG - OTHER] SCH (16:00)
[2018-10-04] MEDS ORDERED: KETOROLAC 30 MG/ML VIAL IV PRN (18:51)
[2018-10-04] MEDS ORDERED: MEPERIDINE HCL 50 MG/ML CARP IV PRN (18:51)
[2018-10-04] MEDS: ACETAMINOPHEN 325 MG TAB PO PRN (21:06)
[2018-10-05] MEDS: ACETAMINOPHEN 325 MG TAB PO PRN (06:47)
[2018-10-05 07:32] LABS: Basophils # (auto) 0.02 K/uL (0-0.2); Basophils % (auto) 0.1 %; Eosinophils # (auto) 0.11 K/uL (0-0.5); Eosinophils % (auto) 0.7 %; Hematocrit (blood only) 21.3 % (37-47); Immature Granulocytes # (auto) 0.06 K/uL (0.00-0.02); Immature Granulocytes % (auto) 0.4 %; Lymphocytes # (auto) 2.27 K/uL (1.2-3.4); Lymphocytes % (auto) 14.9 %; Mean Corpuscular Hgb Conc 32.9 g/dL (32-36); Mean Corpuscular Volume 86.6 fL (80-100); Mean Platelet Volume 11.8 fL (7.4-10.4); Monocytes # (auto) 0.83 K/uL (0.11-0.59); Monocytes % (auto) 5.4 %; Neutrophils # (auto) 11.96 K/uL (1.4-6.5); Neutrophils % (auto) 78.5 %; Platelet Count 185 K/uL (130-400); RDW Coefficient of Variation 14.2 % (11.5-14.5); RDW Standard Deviation 44.8 fL (36.4-46.3); Red Blood Count 2.46 M/uL (4.2-5.4); White Blood Count 15.25 K/uL (4.8-10.8)
[2018-10-05 07:56] LABS: RBC Morphology Unremarkable
[2018-10-05] MEDS: OXYCODONE/ACETAMINOPHEN 5mg/325mg TAB PO PRN ×4 (08:00→21:30)
--- NOTE | 2018-10-05 08:33 | Obstetrical Progress Note ---
Date of Service <Sanjeev Damon DO - Last Filed: 10/05/18 08:42> October 05, 2018 Assessment & Plan <Sanjeev Damon DO - Last Filed: 10/05/18 08:42> (1) delivery delivered: For intolerance to labor - continue routine post-/op care - POD #2 - Encourage ambulation - Hgb 7.0 today and stable from yesterday 7.1 - Discussed need for SVDs for DVT ppx while patient is in bed (2) 39 weeks gestation of : 37 year old, , at 39.2 weeks gestation with EDC of 10/08/2018 via LMP of 01/01/18. A-, Ab-, GBS- - required Csection for intolerance to labor (3) Elevated blood pressure reading: prior to delivery received Nifedipine 10mg PO one time dose for elevated BP shortly after arriving to the L&D floor - vitals have been stable since Subjective <Sanjeev Damon DO - Last Filed: 10/05/18 08:42> Ambulation: ambulating normally Voiding: no voiding problems Passing Gas:: Yes Diet Tolerance:: regular diet Feeding Type:: breast feeding Joseph states she took off SVDs overnight. She was instructed to keep them on while in bed as for DVT ppx. She denies fevers, chills, shortness of breath, chest pain, nausea, vomiting. Physical Exam <Sanjeev Damon DO - Last Filed: 10/05/18 08:42> Vital Signs (Past 24 Hours) Last Vital Signs Temp 37.0 C 10/05/18 07:40 Pulse 88 10/05/18 07:40 Resp 20 10/05/18 07:40 BP 137/86 10/05/18 07:40 Pulse Ox 94 10/04/18 23:50 Constitutional WD/WN, vitals as above cooperative Eyes + anicteric sclerae Respiratory normal respiratory effort, lungs clear to auscultation Cardiovascular Rate/Rhythm: regular rate and regular rhythm Heart Sounds: no murmur Extremities: + pedal edema Gastrointestinal (Abdomen) Percussion/Palpation: abdomen soft fundus is firm, non-tender, 3cm below umbilicus. Surgical site is clean, dry, intact without signs of infection. Bandage was removed and was dry. Musculoskeletal Head/Neck/Chest: normocephalic and head atraumatic Skin no rashes, warm and dry Neurologic moves all extremities and awake Psychiatric Orientation: alert Results & Data <Sanjeev Damon, DO - Last Filed: 10/05/18 08:42> Laboratory Results Laboratory Results - last 24 hr 10/03/18 10/04/18 10/04/18 14:10 12:01 12:01 WBC 15.22 H RBC 2.48 L Hgb 7.1 L Hct 21.3 L MCV 85.9 MCH 28.6 MCHC 33.3 RDW Std Deviation 43.8 RDW Coeff of Favian 14.1 Plt Count 148 MPV 11.3 H Immature Gran % (Auto) 0.3 Neut % (Auto) 79.1 Lymph % (Auto) 13.4 [place] % (Auto) 7.0 Eos % (Auto) 0.1 Baso % (Auto) 0.1 Immature Gran # (Auto) 0.05 H Neut # (Auto) 12.04 H Lymph # (Auto) 2.04 [place] # (Auto) 1.06 H Eos # (Auto) 0.02 Baso # (Auto) 0.01 RBC Morphology Polychromasia 1+ Basophilic Stippling 1+ Sodium 135 L Potassium 4.1 Chloride 105 Carbon Dioxide 24 Anion Gap 6.0 BUN 11 D Creatinine 0.75 Est Cr Clr Drug Dosing 119.8 Est GFR ( Amer) 118.9 Est GFR (Non-Af Amer) 102.5 BUN/Creatinine Ratio 14.3 Glucose 80 Calcium 7.2 L D Total Bilirubin 0.6 AST 28 ALT 17 Alkaline Phosphatase 96 Total Protein 4.2 L D Albumin 1.8 L Globulin 2.4 L Albumin/Globulin Ratio 0.7 L Antibody Identification Anti-D due to RhIg 10/05/18 07:13 WBC 15.25 H RBC 2.46 L Hgb 7.0 L Hct 21.3 L MCV 86.6 MCH 28.5 MCHC 32.9 RDW Std Deviation 44.8 RDW Coeff of Favian 14.2 Plt Count 185 MPV 11.8 H Immature Gran % (Auto) 0.4 Neut % (Auto) 78.5 Lymph % (Auto) 14.9 [place] % (Auto) 5.4 Eos % (Auto) 0.7 Baso % (Auto) 0.1 Immature Gran # (Auto) 0.06 H Neut # (Auto) 11.96 H Lymph # (Auto) 2.27 [place] # (Auto) 0.83 H Eos # (Auto) 0.11 Baso # (Auto) 0.02 RBC Morphology Unremarkable Polychromasia Basophilic Stippling Sodium Potassium Chloride Carbon Dioxide Anion Gap BUN Creatinine Est Cr Clr Drug Dosing Est GFR ( Amer) Est GFR (Non-Af Amer) BUN/Creatinine Ratio Glucose Calcium Total Bilirubin AST ALT Alkaline Phosphatase Total Protein Albumin Globulin Albumin/Globulin Ratio Antibody Identification Medications Administered Acetaminophen (Tylenol) 650 mg PO Q4H PRN PRN Reason: Headache Stop: 11/02/18 18:46 Last Admin: 10/05/18 06:47 Dose: 650 mg Admin: 10/04/18 21:06 Dose: 650 mg Admin: 10/03/18 19:02 Dose: 650 mg Docusate Sodium (Colace) 100 mg PO BID [facility] Stop: 11/03/18 08:59 Last Admin: 10/05/18 08:39 Dose: 100 mg Admin: 10/04/18 21:06 Dose: 100 mg Admin: 10/04/18 08:20 Dose: Not Given Ferrous Sulfate (Feosol) 325 mg PO QAM [facility] Stop: 11/03/18 08:59 Last Admin: 10/05/18 08:39 Dose: 325 mg Admin: 10/04/18 08:20 Dose: Not Given Lactated Ringer's (Lr) 1,000 mls @ 125 mls/hr IV .Q8H [facility] Stop: 10/05/18 13:59 Last Infusion: 10/04/18 20:00 Dose: 0 mls/hr Admin: 10/04/18 15:50 Dose: 125 mls/hr Infusion: 10/03/18 23:23 Dose: 125 mls/hr Infusion: 10/03/18 20:59 Dose: 125 mls/hr Infusion: 10/03/18 20:29 Dose: 999 mls/hr Admin: 10/03/18 18:52 Dose: 125 mls/hr Infusion: 10/03/18 18:52 Dose: 125 mls/hr Admin: 10/03/18 14:04 Dose: 125 mls/hr Oxytocin (Pitocin) 30 units in 500 mls @ 0 mls/hr IV .Q24H PRN; Protocol PRN Reason: Labor Induction/Augmentation Stop: 10/05/18 14:48 Last Titration: 10/03/18 20:29 Dose: 0 units/hr, 0 mls/hr Admin: 10/03/18 15:55 Dose: 0.06 units/hr, 1 mls/hr Oxycodone/Acetaminophen (Percocet 5mg/325mg) 1 - 2 tab PO Q4H PRN PRN Reason: Pain Stop: 10/18/18 18:50 Last Admin: 10/05/18 08:00 Dose: 1 tab Prenat Multivit/Chauvin/Iron/Folic Ac ( Vitamin) 1 tab PO QAM ESSIE Stop: 11/03/18 08:59 Last Admin: 10/05/18 08:39 Dose: 1 tab Admin: 10/04/18 08:20 Dose: Not Given Simethicone (Mylicon) 80 mg PO QID [facility] Stop: 11/03/18 08:59 Last Admin: 10/05/18 08:39 Dose: 80 mg Admin: 10/04/18 21:06 Dose: 80 mg Admin: 10/04/18 17:08 Dose: 80 mg Admin: 10/04/18 14:25 Dose: Not Given Admin: 10/04/18 08:20 Dose: 80 mg <Kalpana Cain MD, FACOG - Last Filed: 10/05/18 08:55> Co-Signing Physician Notes Resident Physician Supervision Note: I interviewed and examined the patient. Discussed with Dr. Damon and agree with findings and plan as documented in the note. Any exceptions or clarifications are listed here: Doing well. Has been up to the bathroom and ambulating in the room without difficulty or symptoms. Hgb is stable from yesterday at noon. Routine day 2 postop care. Documented By: Kalpana Cain MD, FACOG
[2018-10-05] MEDS: PRENATAL VITAMIN 1 TAB PO SCH (08:39)
[2018-10-05] MEDS: FERROUS SULFATE 325 MG TAB PO SCH (08:39)
[2018-10-05] MEDS: DOCUSATE SODIUM 100 MG CAP PO SCH ×2 (08:39→21:06)
[2018-10-05] MEDS: SIMETHICONE 80 MG CHEW PO SCH ×4 (08:39→21:06)
[2018-10-05] MEDS: MESALAMINE 1.2 GM PO SCH ×2 (08:43→21:07)
[2018-10-05] MEDS ORDERED: BISACODYL 5 MG TABEC PO SCH (20:00)
[2018-10-05] MEDS: SENNA 8.6 MG TAB PO PRN (21:30)
[2018-10-06] MEDS ORDERED: BISACODYL 10 MG SUPP PR PRN (00:27)
[2018-10-06] MEDS: ACETAMINOPHEN 325 MG TAB PO PRN ×5 (01:42→22:23)
--- NOTE | 2018-10-06 07:03 | Obstetrical Progress Note ---
Date of Service <Sanjeev DamonDO - Last Filed: 10/06/18 07:06> October 06, 2018 Assessment & Plan <Sanjeev DamonDO - Last Filed: 10/06/18 07:06> (1) delivery delivered: For intolerance to labor - continue routine post-/op care - POD #3 - Encourage ambulation - vitals stable - reviewed discharge instructions at bedside (2) 39 weeks gestation of : 37 year old, , at 39.2 weeks gestation with EDC of 10/08/2018 via LMP of 01/01/18. A-, Ab-, GBS- - required Csection for intolerance to labor (3) Elevated blood pressure reading: prior to delivery received Nifedipine 10mg PO one time dose for elevated BP shortly after arriving to the L&D floor - vitals have been stable since Subjective <Sanjeev DamonDO - Last Filed: 10/06/18 07:06> Ambulation: ambulating normally Voiding: no voiding problems Passing Gas:: Yes Diet Tolerance:: regular diet Feeding Type:: bottle feeding Joseph complains of eye puffiness this morning and states she was tearful last night because baby needed oxygen for decrease O2 sats. She does not want to continue percocet as she was worried that was the cause of baby's decrease in O2. She is supplementing with bottle feeding. She denies fever, chills, chest pain, shortness of breath. Physical Exam <Sanjeev DamonDO - Last Filed: 10/06/18 07:06> Vital Signs (Past 24 Hours) Last Vital Signs Temp 36.6 C 10/05/18 23:00 Pulse 96 H 10/05/18 23:00 Resp 18 10/05/18 23:00 BP 133/77 10/05/18 23:00 Pulse Ox 98 10/05/18 15:50 Constitutional WD/WN, vitals as above cooperative Eyes + anicteric sclerae mild baltazar-orbital swelling Respiratory normal respiratory effort, lungs clear to auscultation Cardiovascular Rate/Rhythm: regular rate and regular rhythm Heart Sounds: no murmur Extremities: + pedal edema Gastrointestinal (Abdomen) Percussion/Palpation: abdomen soft Musculoskeletal Head/Neck/Chest: normocephalic and head atraumatic Skin no rashes, warm and dry Neurologic moves all extremities and awake Psychiatric Orientation: alert Results & Data <Sanjeev Damon DO - Last Filed: 10/06/18 07:06> Laboratory Results Laboratory Results - last 24 hr 10/05/18 07:13 WBC 15.25 H RBC 2.46 L Hgb 7.0 L Hct 21.3 L MCV 86.6 MCH 28.5 MCHC 32.9 RDW Std Deviation 44.8 RDW Coeff of Favian 14.2 Plt Count 185 MPV 11.8 H Immature Gran % (Auto) 0.4 Neut % (Auto) 78.5 Lymph % (Auto) 14.9 [place] % (Auto) 5.4 Eos % (Auto) 0.7 Baso % (Auto) 0.1 Immature Gran # (Auto) 0.06 H Neut # (Auto) 11.96 H Lymph # (Auto) 2.27 [place] # (Auto) 0.83 H Eos # (Auto) 0.11 Baso # (Auto) 0.02 RBC Morphology Unremarkable Medications Administered Acetaminophen (Tylenol) 650 mg PO Q4H PRN PRN Reason: Headache Stop: 11/02/18 18:46 Last Admin: 10/06/18 01:42 Dose: 650 mg Admin: 10/05/18 06:47 Dose: 650 mg Admin: 10/04/18 21:06 Dose: 650 mg Admin: 10/03/18 19:02 Dose: 650 mg Docusate Sodium (Colace) 100 mg PO BID [facility] Stop: 11/03/18 08:59 Last Admin: 10/05/18 21:06 Dose: 100 mg Admin: 10/05/18 08:39 Dose: 100 mg Admin: 10/04/18 21:06 Dose: 100 mg Admin: 10/04/18 08:20 Dose: Not Given Ferrous Sulfate (Feosol) 325 mg PO QAM [facility] Stop: 11/03/18 08:59 Last Admin: 10/05/18 08:39 Dose: 325 mg Admin: 10/04/18 08:20 Dose: Not Given Pt's Own Med: (Mesalamine Dr 1.2gm) 2 ea PO BID [facility] Stop: 11/03/18 20:59 Last Admin: 10/05/18 21:07 Dose: 2 tabs Admin: 10/05/18 08:43 Dose: 2 tabs Oxycodone/Acetaminophen (Percocet 5mg/325mg) 1 - 2 tab PO Q4H PRN PRN Reason: Pain Stop: 10/18/18 18:50 Last Admin: 10/05/18 21:30 Dose: 1 tab Admin: 10/05/18 16:53 Dose: 1 tab Admin: 10/05/18 12:00 Dose: 1 tab Admin: 10/05/18 08:00 Dose: 1 tab Prenat Multivit/Strap Machine Operator Automatic/Iron/Folic Ac ( Vitamin) 1 tab PO QAM ESSIE Stop: 11/03/18 08:59 Last Admin: 10/05/18 08:39 Dose: 1 tab Admin: 10/04/18 08:20 Dose: Not Given Sennosides (Senokot) 17.2 mg PO HS PRN PRN Reason: Constipation Stop: 11/03/18 00:26 Last Admin: 10/05/18 21:30 Dose: 17.2 mg Simethicone (Mylicon) 80 mg PO QID ESSIE Stop: 11/03/18 08:59 Last Admin: 10/05/18 21:06 Dose: 80 mg Admin: 10/05/18 16:53 Dose: 80 mg Admin: 10/05/18 13:49 Dose: 80 mg Admin: 10/05/18 08:39 Dose: 80 mg Admin: 10/04/18 21:06 Dose: 80 mg Admin: 10/04/18 17:08 Dose: 80 mg Admin: 10/04/18 14:25 Dose: Not Given Admin: 10/04/18 08:20 Dose: 80 mg <Alexandra Rizzo MD, FACOG - Last Filed: 10/06/18 08:41> Co-Signing Physician Notes Resident Physician Supervision Note: I interviewed and examined the patient. Discussed with Dr. Sanjeev Damon and agree with findings and plan as documented in the note. Any exceptions or clarifications are listed here: [None] Documented By: Alexandra Rizzo MD, FACOG
[2018-10-06 08:28] LABS: Hematocrit (blood only) 19.7 % (37-47); Hemoglobin 6.5 g/dL (12.0-16.0)
[2018-10-06] MEDS: SIMETHICONE 80 MG CHEW PO SCH ×3 (09:37→16:56)
[2018-10-06] MEDS: FERROUS SULFATE 325 MG TAB PO SCH (09:37)
[2018-10-06] MEDS: PRENATAL VITAMIN 1 TAB PO SCH (09:37)
[2018-10-06] MEDS: MESALAMINE 1.2 GM PO SCH ×2 (09:39→20:24)
[2018-10-06] MEDS: DOCUSATE SODIUM 100 MG CAP PO SCH ×2 (09:43→20:23)
[2018-10-06] MEDS: SENNA 8.6 MG TAB PO PRN (20:23)
[2018-10-06 20:41] LABS: Hematocrit (blood only) 20.7 % (37-47); Hemoglobin 6.8 g/dL (12.0-16.0); Mean Corpuscular Hgb Conc 32.9 g/dL (32-36); Mean Corpuscular Volume 88.5 fL (80-100); Mean Platelet Volume 10.9 fL (7.4-10.4); Platelet Count 223 K/uL (130-400); RDW Coefficient of Variation 14.5 % (11.5-14.5); Red Blood Count 2.34 M/uL (4.2-5.4); White Blood Count 9.99 K/uL (4.8-10.8)
[2018-10-06 20:52] LABS: Basophils # (auto) 0.01 K/uL (0-0.2); Basophils % (auto) 0.1 %; Eosinophils # (auto) 0.32 K/uL (0-0.5); Eosinophils % (auto) 3.2 %; Lymphocytes # (auto) 2.23 K/uL (1.2-3.4); Lymphocytes % (auto) 22.3 %; Monocytes # (auto) 0.62 K/uL (0.11-0.59); Monocytes % (auto) 6.2 %; Neutrophils # (auto) 6.71 K/uL (1.4-6.5); Neutrophils % (auto) 67.2 %; RBC Morphology Unremarkable
[2018-10-06 20:55] LABS: Albumin Globulin Ratio 0.6 (0.9-2); Albumin Level 2.2 gm/dl (3.4-5.0); BUN Creatinine Ratio 15.6 (10-20); Bilirubin,Total 0.2 mg/dl (0.2-1); Calcium 8.5 mg/dl (8.5-10.1); Creatinine Clr Calc Pharmacy 144.9 ml/min; Est GFR (African American) 134.5; Globulin 3.4 gm/dl (2.5-4.0); Potassium 3.9 mmol/L (3.5-5.1); Total Protein 5.6 gm/dl (6.4-8.2)
--- NOTE | 2018-10-06 23:17 | Communication Note ---
Date of Service: October 06, 2018 I went to [facility]'s room to examine her after being told by RN Devendra that she was hypertensive without any symptoms or complaints. I awakened [facility] to talk with her and examine her. She had been sleeping soundly. She again denied LOPEZ, vis changes, RUQ pain or increased edema. She did admit her feet are swollen but that they have been no worse today than in the days before. I have been aware of her low Hgb since early this morning when the labs were resulted, and her morning RN did report that the patient was without dizziness when ambulating, but I confirmed this with [facility] now; she denies any dizziness, lightheadedness or SOB. BP 155/110. Extremities show 2+ edema in feet equal bilaterally. DTR 1+ bilaterally. SCD' s on and working normally. Abdomen soft and post-gravid with firm fundus at U. No TTP in RUQ. Breathing is regular and nonlabored. Pulse regular. I explained to [facility] that I am sending labs to r/o preeclampsia, and that when her RN is done giving signout to the oncoming nurse, her BP will be rechecked. If it remains high even in the presence of normal labwork, we may need to start an antihypertensive such as labetalol. If labs show preeclampsia , additional management with MgSO4 would be considered. She expresses understanding.
--- NOTE | 2018-10-07 06:35 | Obstetrical Progress Note ---
Date of Service <Sanjeev Damon DO - Last Filed: 10/07/18 06:35> October 07, 2018 Assessment & Plan <Sanjeev Damon DO - Last Filed: 10/07/18 06:35> (1) delivery delivered: For intolerance to labor - continue routine post-/op care until discharge home today - POD #4 - Encourage ambulation - had elevated BP last night, labs were ordered last night for post- preeclampsia which were negative, asymptomatic this morning for headache, RUQ pain, visual changes - reviewed discharge instructions at bedside, will need iron supplement daily at home (2) 39 weeks gestation of : 37 year old, , at 39.2 weeks gestation with EDC of 10/08/2018 via LMP of 01/01/18. A-, Ab-, GBS- - required Csection for intolerance to labor (3) Elevated blood pressure reading: prior to delivery received Nifedipine 10mg PO one time dose for elevated BP shortly after arriving to the L&D floor Subjective <Sanjeev Damon - Last Filed: 10/07/18 06:35> Ambulation: ambulating normally Voiding: no voiding problems Passing Gas:: Yes Diet Tolerance:: regular diet Feeding Type:: bottle feeding Joseph states she is doing well this morning. She denies fevers, chills, chest pain, shortness of breath, nausea, vomiting. Labs were ordered last night for post- preeclampsia, asymptomatic this morning for headache, RUQ pain, visual changes. Physical Exam <Sanjeev Damon DO - Last Filed: 10/07/18 06:35> Vital Signs (Past 24 Hours) Last Vital Signs Temp 37.0 C 10/06/18 23:50 Pulse 101 H 10/06/18 23:50 Resp 18 10/06/18 23:50 BP 134/85 10/07/18 04:25 Pulse Ox 97 10/06/18 23:50 Constitutional WD/WN, vitals as above cooperative Eyes + anicteric sclerae Respiratory normal respiratory effort, lungs clear to auscultation Cardiovascular Rate/Rhythm: regular rate and regular rhythm Heart Sounds: no murmur Extremities: + pedal edema Gastrointestinal (Abdomen) Percussion/Palpation: abdomen soft fundus is firm, non-tender, 3 cm below umbilicus surgical incision site is dry, clean, intact without signs of infection Musculoskeletal Head/Neck/Chest: normocephalic and head atraumatic SCDs on bilateral lower extremities Skin no rashes, warm and dry Neurologic moves all extremities and awake Psychiatric Orientation: alert Results & Data <Sanjeev Damon DO - Last Filed: 10/07/18 06:35> Laboratory Results Laboratory Results - last 24 hr 10/06/18 10/06/18 10/06/18 06:55 20:21 20:21 WBC 9.99 RBC 2.34 L Hgb 6.5 L* 6.8 L* Hct 19.7 L* 20.7 L* MCV 88.5 MCH 29.1 MCHC 32.9 RDW Std Deviation 46.0 RDW Coeff of Favian 14.5 Plt Count 223 MPV 10.9 H Immature Gran % (Auto) 1.0 Neut % (Auto) 67.2 Lymph % (Auto) 22.3 [place] % (Auto) 6.2 Eos % (Auto) 3.2 Baso % (Auto) 0.1 Immature Gran # (Auto) 0.10 H Neut # (Auto) 6.71 H Lymph # (Auto) 2.23 [place] # (Auto) 0.62 H Eos # (Auto) 0.32 Baso # (Auto) 0.01 RBC Morphology Unremarkable Sodium 141 Potassium 3.9 Chloride 112 H Carbon Dioxide 26 Anion Gap 3.0 BUN 10 Creatinine 0.62 Est Cr Clr Drug Dosing 144.9 Est GFR ( Amer) 134.5 Est GFR (Non-Af Amer) 116.0 BUN/Creatinine Ratio 15.6 Glucose 106 H Calcium 8.5 Total Bilirubin 0.2 AST 36 ALT 23 Alkaline Phosphatase 94 Total Protein 5.6 L Albumin 2.2 L Globulin 3.4 Albumin/Globulin Ratio 0.6 L Medications Administered Acetaminophen (Tylenol) 650 mg PO Q4H PRN PRN Reason: Headache Stop: 11/02/18 18:46 Last Admin: 10/06/18 22:23 Dose: 650 mg Admin: 10/06/18 16:57 Dose: 650 mg Admin: 10/06/18 12:30 Dose: 650 mg Admin: 10/06/18 07:21 Dose: 650 mg Admin: 10/06/18 01:42 Dose: 650 mg Admin: 10/05/18 06:47 Dose: 650 mg Admin: 10/04/18 21:06 Dose: 650 mg Admin: 10/03/18 19:02 Dose: 650 mg Docusate Sodium (Colace) 100 mg PO BID [facility] Stop: 11/03/18 08:59 Last Admin: 10/06/18 20:23 Dose: 100 mg Admin: 10/06/18 09:43 Dose: 100 mg Admin: 10/05/18 21:06 Dose: 100 mg Admin: 10/05/18 08:39 Dose: 100 mg Admin: 10/04/18 21:06 Dose: 100 mg Admin: 10/04/18 08:20 Dose: Not Given Ferrous Sulfate (Feosol) 325 mg PO QAM [facility] Stop: 11/03/18 08:59 Last Admin: 10/06/18 09:37 Dose: 325 mg Admin: 10/05/18 08:39 Dose: 325 mg Admin: 10/04/18 08:20 Dose: Not Given Pt's Own Med: (Mesalamine Dr 1.2gm) 2 ea PO BID [facility] Stop: 11/03/18 20:59 Last Admin: 10/06/18 20:24 Dose: 2 tabs Admin: 10/06/18 09:39 Dose: 2 tabs Admin: 10/05/18 21:07 Dose: 2 tabs Admin: 10/05/18 08:43 Dose: 2 tabs Oxycodone/Acetaminophen (Percocet 5mg/325mg) 1 - 2 tab PO Q4H PRN PRN Reason: Pain Stop: 10/18/18 18:50 Last Admin: 10/05/18 21:30 Dose: 1 tab Admin: 10/05/18 16:53 Dose: 1 tab Admin: 10/05/18 12:00 Dose: 1 tab Admin: 10/05/18 08:00 Dose: 1 tab Prenat Multivit/[place]/Iron/Folic Ac ( Vitamin) 1 tab PO QAM [facility] Stop: 11/03/18 08:59 Last Admin: 10/06/18 09:37 Dose: 1 tab Admin: 10/05/18 08:39 Dose: 1 tab Admin: 10/04/18 08:20 Dose: Not Given Sennosides (Senokot) 17.2 mg PO HS PRN PRN Reason: Constipation Stop: 11/03/18 00:26 Last Admin: 10/06/18 20:23 Dose: 17.2 mg Admin: 10/05/18 21:30 Dose: 17.2 mg Simethicone (Mylicon) 80 mg PO QID [facility] Stop: 11/03/18 08:59 Last Admin: 10/06/18 16:56 Dose: 80 mg Admin: 10/06/18 14:24 Dose: Not Given Admin: 10/06/18 09:37 Dose: 80 mg Admin: 10/05/18 21:06 Dose: 80 mg Admin: 10/05/18 16:53 Dose: 80 mg Admin: 10/05/18 13:49 Dose: 80 mg Admin: 10/05/18 08:39 Dose: 80 mg Admin: 10/04/18 21:06 Dose: 80 mg Admin: 10/04/18 17:08 Dose: 80 mg Admin: 10/04/18 14:25 Dose: Not Given Admin: 10/04/18 08:20 Dose: 80 mg <Alannah Salazar MD - Last Filed: 10/07/18 06:44> Co-Signing Physician Notes I have examined the patient and agree with the resident note above. Patient was evaluated last night for high BP without symptoms of preeclampsia. Labs were normal. I note that bp was being taken while SCD's were on and at full squeeze. Repeat BP taken while SCD's were deflated was actually normal. BP again this morning is below HTN range and patient remains asymptomatic without LOPEZ, RUQ pain, vis chng, n/v. OK for d/c to home, reviewed preeclampsia precautions with patient, and she expresses understanding and will call us if any concerning symptoms develop. 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
[2018-10-07] MEDS: SIMETHICONE 80 MG CHEW PO SCH ×2 (07:24→13:41)
[2018-10-07] MEDS: FERROUS SULFATE 325 MG TAB PO SCH (07:25)
[2018-10-07] MEDS: PRENATAL VITAMIN 1 TAB PO SCH (07:25)
[2018-10-07] MEDS: MESALAMINE 1.2 GM PO SCH (07:25)
[2018-10-07] MEDS: DOCUSATE SODIUM 100 MG CAP PO SCH (07:26)
[2018-10-07] MEDS: OXYCODONE/ACETAMINOPHEN 5mg/325mg TAB PO PRN ×2 (07:26→13:41)
--- NOTE | 2018-10-07 09:10 | Obstetrical Progress Note ---
Date of Service October 07, 2018 Assessment & Plan (1) Labile blood pressure: nursing approached me about pt am blood pressures. on review they are labile. per nurse pt denies headache etc. plan recheck bps at noon and consider med trt vs. at the least one week office followup for bp check. Physical Exam 2 Vital Signs (Past 24 Hours): Last Vital Signs Temp 37.0 C 10/06/18 23:50 Pulse 101 H 10/06/18 23:50 Resp 18 10/06/18 23:50 BP 134/85 10/07/18 04:25 Pulse Ox 97 10/06/18 23:50
--- NOTE | 2018-10-07 13:35 | Obstetrical Progress Note ---
Date of Service October 07, 2018 Assessment & Plan (1) delivery delivered: nurse notes last bp 140s/90. pt without any sx. rec bp check in office in one wk due to labile bps. Physical Exam 2 Vital Signs (Past 24 Hours): Last Vital Signs Temp 36.9 C 10/07/18 08:15 Pulse 98 H 10/07/18 08:15 Resp 18 10/07/18 08:15 BP 151/97 H 10/07/18 08:15 Pulse Ox 97 10/07/18 08:15
--- NOTE | 2018-10-10 08:39 | Discharge Summary ---
Joseph had a section. 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 By 10/07/2018 she met discharge criteria. At that time she was assessed by Dr. Ackerman and met discharge criteria. Specifically, she was ambulating, tolerating an oral diet, had no extremity pain, and minimal bleeding. Note: The patient's hemoglobin was 6.8, but this was stable since delivery. PHYSICAL EXAMINATION: VITAL SIGNS: Stable. She is afebrile. Incision clean, dry and intact. EXTREMITIES: Negative. ABDOMEN: Soft, nontender. CHEST: Clear. CARDIOVASCULAR: Normal rate and rhythm. IMPRESSION AND PLAN: Postop day #4. There were some labile blood pressures at the end, but the patient was apparently asymptomatic and was discharged home on pain medication and instructions reviewed.
== END 2018-10-07 15:00 | disposition home or self-care (01) | DRG 787 ==
LOC: OPB 13:40 → 4S1 13:41 → 4S2 10-04 15:20